=== PATIENT | female | born 1975 | race Caucasian/White ===

== ENCOUNTER 2017-11-16 22:10 | Emergency (ER) | payer OTHER ==
[~2017-11-16] VITALS: Ht 152.4 cm; Wt 54.4 kg
[~2017-11-16 22:10] MED LIST changes: -ULTRACET PO; -URIN D.S. TABL1 EACH PO
[2017-11-17] MEDS ORDERED: ULTRACET PO (06:41)
[2017-11-17] MEDS ORDERED: URIN D.S. TABL1 EACH PO (06:41)
== END 2017-11-17 06:36 | disposition home or self-care (01) ==
LOC: ER 22:10
DX: N99.89 Other postprocedural complications and disorders of genitourinary system (principal); R33.8 Other retention of urine; G89.18 Other acute postprocedural pain; R10.2 Pelvic and perineal pain

== ENCOUNTER → 2017-11-16 | Day surgery (SDC) | payer OTHER ==
[~2017-11-16] MED LIST: CIPRO500 MG PO; LEVOXYL50 MCG; PYRIDIUM200 MG PO; SPRINTEC 28 DA1 EACH PO; SYNTHROID50 MCG; ULTRACET PO; URIN D.S. TABL1 EACH PO
== END | disposition home or self-care (01) ==
LOC: ADM 11-09 11:30 → CIR.AMB 11:30
DX: N30.10 Interstitial cystitis (chronic) without hematuria (principal)

== ENCOUNTER → 2021-01-28 | Emergency (ER) | payer OTHER ==
[~2021-01-28] VITALS: Ht 152.4 cm; Wt 56.7 kg
[~2021-01-28] MED LIST changes: +BUTALBIT-ACETA1 EACH PO; +IBU600 MG PO; +ULTRACET PO; +URIN D.S. TABL1 EACH PO
== END | disposition home or self-care (01) ==
LOC: ER 05:13
DX: G44.209 Tension-type headache, unspecified, not intractable (principal); R42 Dizziness and giddiness; T50.Z95A Adverse effect of other vaccines and biological substances, initial encounter

== ENCOUNTER 2021-11-07 10:37 | Emergency (ER) | payer OTHER ==
[~2021-11-07] VITALS: Ht 157.5 cm; Wt 68.0 kg
[2021-11-07] MEDS ORDERED: NATAZIA 28 TAB1 EACH (11:17)
== END 2021-11-07 12:15 | disposition home or self-care (01) ==
LOC: ER 10:37
DX: R51.9 Headache, unspecified (principal); G89.11 Acute pain due to trauma

== ENCOUNTER 2023-10-20 07:07 | Emergency (ER) | payer OTHER ==
[~2023-10-20] VITALS: Ht 152.4 cm; Wt 57.2 kg
[~2023-10-20 07:07] MED LIST changes: +NATAZIA 28 TAB1 EACH
[2023-10-20 09:01] LABS: PH,URINE 5.5 (5.0-8.0); URINE APPEARANCE Clear; URINE BILIRRUBIN Negative (NEGATIVE); URINE COLOR Yellow; URINE GLUCOSE Negative (NEGATIVE); URINE LEUKOCYTE Negative; URINE NITRATE Negative; URINE PROTEIN Negative (NEGATIVE); URINE UROBILINOGEN 0.2 E.U./dl
[2023-10-20 09:02] LABS: URINE BACTERIA 1092.3 uL (0.0-1933); URINE EPITHELIAL CELLS 17.7 uL (0.0-38.8); URINE RBC 15.8 uL (0.0-20.8); URINE WBC 14.5 uL (0.0-23.2)
[2023-10-20 09:02] LABS: HEMATOCRIT 40.1 % (36.0-45.00); HEMOGLOBIN 13.3 g/dL (12.0-15.00); MEAN CELL VOLUME 86.6 fL (80.00-100.00); MEAN CORPUSCULAR HEMOGLOBIN 28.8 pg (27.00-32.0); MEAN CORPUSCULAR HGB CONC 33.3 g/dl (32.0-36.0); PLATELET COUNT 283 K/uL (150-450); RED BLOOD COUNT 4.62 M/uL (4.00-6.00); RED CELL DISTRIBUTION WIDTH 13.1 % (11.5-14.5)
[2023-10-20 09:30] LABS: CALCIUM 9.1 mg/dL (8.5-10.1); CREATININE SERUM 0.77 mg/dL (0.55-1.02); GFR 80.01; POTASSIUM 4.09 mEq/L (3.5-5.1)
[2023-10-20 09:56] LABS: URINE BLOOD TRACES
== END 2023-10-20 12:16 | disposition home or self-care (01) ==
LOC: ER 07:07
PROVIDERS: Emergency Medicine
DX: K52.9 Noninfective gastroenteritis and colitis, unspecified (principal); E03.9 Hypothyroidism, unspecified

== ENCOUNTER 2024-11-28 20:55 | Emergency (ER) | payer OTHER ==
[~2024-11-28] VITALS: Ht 152.4 cm; Wt 58.1 kg
[2024-11-28] MEDS ORDERED: PROMETRIUM200 MG (21:21)
[2024-11-28] MEDS ORDERED: ESTRADIOL2 MG PO (21:22)
[2024-11-28] MEDS ORDERED: 0.9 % SODIUM CHLORIDE 1,000 ML IV STA (21:47)
[2024-11-28] MEDS ORDERED: MEPERIDINE HCL/PF 25 MG/ML VIAL IM STA (22:52)
[2024-11-28] MEDS ORDERED: PROMETHAZINE HCL 25 MG/ML AMPUL IM STA (22:53)
[2024-11-28 23:11] LABS: HEMATOCRIT 39.1 % (36.0-45.00); HEMOGLOBIN 12.7 g/dL (12.0-15.00); MEAN CELL VOLUME 86.6 fL (80.00-100.00); MEAN CORPUSCULAR HEMOGLOBIN 28.2 pg (27.00-32.0); MEAN CORPUSCULAR HGB CONC 32.5 g/dl (32.0-36.0); PLATELET COUNT 316 K/uL (150-450); RED BLOOD COUNT 4.51 M/uL (4.00-6.00); RED CELL DISTRIBUTION WIDTH 12.7 % (11.5-14.5)
[2024-11-28] MEDS ORDERED: PROMETHAZINE HCL 25 MG/ML AMPUL ONE (23:12)
[2024-11-28 23:34] LABS: INR 0.97; PARTIAL THROMBOPLASTIN TIME 26.7 SECONDS (22.0-34.0); PROTHROMBIN TIME 10.6 SECONDS (9.0-11.5)
[2024-11-28 23:34] LABS: PH,URINE 5.5 (5.0-8.0); URINE APPEARANCE Clear; URINE BILIRRUBIN Negative (NEGATIVE); URINE BLOOD Negative; URINE COLOR Yellow; URINE GLUCOSE Negative (NEGATIVE); URINE KETONE Negative (NEGATIVE); URINE LEUKOCYTE Negative; URINE NITRATE Negative; URINE PROTEIN Negative (NEGATIVE); URINE UROBILINOGEN 0.2 E.U./dl
[2024-11-28 23:38] LABS: ALBUMIN 3.8 gm/dL (3.4-5.0); BILIRUBIN TOTAL 0.85 mg/dL (0.3-1.2); CALCIUM 9.1 mg/dL (8.5-10.1); CREATININE SERUM 0.87 mg/dL (0.55-1.02); GFR 69.2; POTASSIUM 3.59 mEq/L (3.5-5.1); TOTAL PROTEIN 7.8 gm/dL (6.4-8.2)
[2024-11-28 23:41] LABS: URINE EPITHELIAL CELLS 8.2 uL (0.0-38.8); URINE RBC 9.2 uL (0.0-20.8); URINE WBC 26.2 uL (0.0-23.2)
[2024-11-28 23:42] LABS: URINE CAST 0.29 uL (0.0-1.40)
[2024-11-29] MEDS ORDERED: KETOROLAC TROMETHAMINE 30 MG VIAL IV STA (01:34)
[2024-11-29] MEDS ORDERED: KETOROLAC TROMETHAMINE 30 MG VIAL ONE (01:44)
[2024-11-29] MEDS ORDERED: INTESTINEX680 M1 PO (03:20)
[2024-11-29] MEDS ORDERED: LEVSIN/SL0.125 MG SL (03:20)
[2024-11-29] MEDS ORDERED: ZOFRAN8 MG PO (03:20)
[2024-11-29] MEDS ORDERED: PHAZYME250 MG PO (03:20)
== END 2024-11-29 03:45 ==
LOC: ER 20:58
DX: R10.31 Right lower quadrant pain (principal); N20.0 Calculus of kidney

== ENCOUNTER 2025-05-27 07:22 | Outpatient (CLI) | payer OTHER ==
[~2025-05-27 07:22] MED LIST changes: +ESTRADIOL2 MG PO; +INTESTINEX680 M1 PO; +LEVSIN/SL0.125 MG SL; +PHAZYME250 MG PO; +PROMETRIUM200 MG; +ZOFRAN8 MG PO
== END 2025-05-27 07:32 | disposition home or self-care (01) ==
LOC: TOM 07:22
DX: R63.5 Abnormal weight gain (principal)